=== PATIENT | male | born 1950 | race American Indian/Alaskan Native ===

== ENCOUNTER → 2016-10-08 | Outpatient (CLI) | payer BC ==
[~2016-10-08] MED LIST: AUGMENTIN875 MG PO; Aspirin E.C. PO; Coumadin Daily Dose PO; ENDOCET 5-3251 EACH PO; Flomax PO; Folvite PO; LIPITOR10 MG; LOVENOX60 MG/0.6 SC; Lanoxin,Digitek PO; Lipitor PO; Lopressor PO; METOPROLOL SUCC25 MG PO; PROSCAR5 MG; Proscar PO; Protonix PO; TARCEVA150 MG PO; TYLENOL REGULA325 MG PO; Toprol XL PO; Tylenol Extra Streng PO; Vibramycin, Doryx PO
== END | disposition home or self-care (01) ==
LOC: EKG 12:57
DX: I05.1 Rheumatic mitral insufficiency (principal); I07.1 Rheumatic tricuspid insufficiency; Z98.890 Other specified postprocedural states
CPT/HCPCS: 93306

== ENCOUNTER 2017-10-23 13:50 | Inpatient (IN) | payer OTHER ==
[~2017-10-23] VITALS: Ht 167.6 cm; Wt 63.9 kg
[~2017-10-23 13:50] MED LIST changes: -Aspirin E.C. PO; +LIPITOR20 MG PO; +LO-DOSE ASPIRIN81 M1 PO; +LOVENOX100 MG/1 M SC; -LOVENOX60 MG/0.6 SC; -Lipitor PO; +PROSCAR5 MG PO
[2017-10-23 14:46] LABS: HEMOGLOBIN 12.5 G/DL (12.5-16.6); MCH 28.9 PG (29.0-34.0); MCHC 34.7 G/DL (30.0-36.0); MCV 83.1 FL (86-99); PLATELET COUNT 171 K/uL (156-360); RBC DIS.WIDTH-CV 14.6 % (11.8-14.6); RBC DIS.WIDTH-SD 44.2 % (39-53); RED BLOOD COUNT 4.33 M/uL (4.00-5.50); WHITE BLOOD COUNT 13.1 K/uL (4.1-10.2)
[2017-10-23 14:51] LABS: ALBUMIN 3.3 g/dL (3.2-4.8); CHLORIDE 95 mEq/L (99-109); SODIUM 132 mEq/L (136-147)
[2017-10-23 14:53] LABS: GLUCOSE 149 mg/dL (70-99); TOTAL PROTEIN 5.9 g/dL (6.4-8.3)
[2017-10-23 14:55] LABS: TOTAL BILIRUBIN 0.5 mg/dL (0.0-1.0)
[2017-10-23 14:57] LABS: ALKALINE PHOSPHATASE 93 IU/L (3-129); CREATININE 0.8 mg/dL (0.6-1.3); GFR ESTIMATE (CALCULATED) > 59 mL/min/ (58.99-99999)
[2017-10-23 14:58] LABS: UREA NITROGEN (BUN) 23 mg/dL (9-23)
[2017-10-23 14:59] LABS: AST (GOT) 52 IU/L (2-34)
[2017-10-23 15:00] LABS: ALT (GPT) 70 IU/L (3-49)
[2017-10-23] MEDS ORDERED: [UNRECOGNIZED DRUG - OTHER] PO (15:29)
[2017-10-23] MEDS ORDERED: VITAMIN D34000 UNIT PO (15:29)
[2017-10-23] MEDS ORDERED: DEXAMETHASONE2 MG PO (15:30)
[2017-10-23] MEDS ORDERED: METFORMIN HCL500 MG PO (15:31)
[2017-10-23] MEDS ORDERED: NOVOLOG100 UNIT/1 SC (15:33)
[2017-10-23] MEDS ORDERED: AUGMENTIN875 MG PO (15:33)
[2017-10-23] MEDS ORDERED: LEVAQUIN750 MG PO (15:33)
[2017-10-23 19:00] VITALS: BP 92/54
[2017-10-23 19:29] VITALS: BP 93/50
[2017-10-24 03:44] VITALS: BP 94/52
[2017-10-24 06:36] LABS: BASOPHIL (%) 0.2 % (0-1); EOSINOPHIL (%) 0 % (0-5); HEMATOCRIT 35.2 % (38.0-50.0); HEMOGLOBIN 11.5 G/DL (12.5-16.6); IMMATURE GRANULOCYTE (%) 0.8 % (0.0-0.7); LYMPHOCYTE (%) 15.9 % (15-42); LYMPHOCYTE COUNT 1.8 K/uL (1.0-2.8); MCH 27.8 PG (29.0-34.0); MCHC 32.7 G/DL (30.0-36.0); MONOCYTE (%) 1.3 % (3-12); MONOCYTE COUNT 0.2 K/uL (0-0.8); NEUTROPHIL (%) 81.8 % (45-76); NEUTROPHIL COUNT 9.4 K/uL (1.8-6.4); PLATELET COUNT 191 K/uL (156-360); RBC DIS.WIDTH-CV 14.9 % (11.8-14.6); RBC DIS.WIDTH-SD 45.5 % (39-53); RED BLOOD COUNT 4.14 M/uL (4.00-5.50); WHITE BLOOD COUNT 11.5 K/uL (4.1-10.2)
[2017-10-24 07:04] LABS: ALBUMIN 2.6 G/DL (3.2-4.8); ALKALINE PHOSPHATASE 73 IU/L (3-129); ALT (GPT) 59 IU/L (3-49); AST (GOT) 48 IU/L (2-34); CHLORIDE 101 MEQ/L (99-109); CREATININE 0.8 MG/DL (0.6-1.3); GFR ESTIMATE (CALCULATED) > 59 mL/min/ (58.99-99999); GLUCOSE 192 mg/dL (70-99); SODIUM 138 MEQ/L (136-147); TOTAL BILIRUBIN 0.5 MG/DL (0.0-1.0); UREA NITROGEN (BUN) 21 mg/dL (9-23)
[2017-10-24 07:29] VITALS: BP 92/54
[2017-10-24 16:22] VITALS: BP 95/53
[2017-10-24 23:30] VITALS: BP 97/54
[2017-10-25] VITALS (22 sets, daily range): BP systolic 73–130; BP diastolic 47–76
[2017-10-25 06:34] LABS: BASOPHIL (%) 0.2 % (0-1); EOSINOPHIL (%) 0 % (0-5); HEMATOCRIT 37.1 % (38.0-50.0); HEMOGLOBIN 12.4 G/DL (12.5-16.6); IMMATURE GRANULOCYTE (%) 1.3 % (0.0-0.7); LYMPHOCYTE (%) 22.7 % (15-42); MCH 28.6 PG (29.0-34.0); MCHC 33.4 G/DL (30.0-36.0); MCV 85.7 FL (86-99); MONOCYTE (%) 0.6 % (3-12); MONOCYTE COUNT 0.1 K/uL (0-0.8); NEUTROPHIL (%) 75.2 % (45-76); NEUTROPHIL COUNT 13.2 K/uL (1.8-6.4); PLATELET COUNT 235 K/uL (156-360); RBC DIS.WIDTH-SD 46.3 % (39-53); RED BLOOD COUNT 4.33 M/uL (4.00-5.50); WHITE BLOOD COUNT 17.6 K/uL (4.1-10.2)
[2017-10-25 07:10] LABS: ALBUMIN 2.8 G/DL (3.2-4.8); ALKALINE PHOSPHATASE 77 IU/L (3-129); ALT (GPT) 83 IU/L (3-49); AST (GOT) 62 IU/L (2-34); CHLORIDE 101 MEQ/L (99-109); CREATININE 0.9 MG/DL (0.6-1.3); GFR ESTIMATE (CALCULATED) > 59 mL/min/ (58.99-99999); POTASSIUM 3.8 MEQ/L (3.7-5.4); SODIUM 138 MEQ/L (136-147); TOTAL BILIRUBIN 0.5 MG/DL (0.0-1.0); TOTAL PROTEIN 5.5 G/DL (6.4-8.3); UREA NITROGEN (BUN) 25 mg/dL (9-23); VANCOMYCIN, TROUGH 12.5 MCG/ML (10-20)
[2017-10-25 07:11] LABS: GLUCOSE 113 mg/dL (70-99)
[2017-10-25 07:25] LABS: COMMENTS - BLOOD GASES A+C+; DEVICE NRBM; FI02 100 %; O2 FLOW 15 L/MIN; SITE LEFT RADIAL
[2017-10-25 07:26] LABS: BASE EXCESS 2.3 mEq/L (-3 to +3); BICARBONATE 2.3 mEq/L (22-26); METHEMOGLOBIN 0.9 % (0-1.5); PCO2 30 mm Hg (35-45); PO2 185 mm Hg (80-100); TOTAL RESP RATE 24 resp/min; pH 7.52 (7.35-7.45)
[2017-10-26] VITALS (21 sets, daily range): BP systolic 84–113; BP diastolic 55–68
[2017-10-26 06:05] LABS: BASOPHIL (%) 0.2 % (0-1); EOSINOPHIL (%) 0 % (0-5); HEMATOCRIT 35.8 % (38.0-50.0); IMMATURE GRANULOCYTE (%) 1.1 % (0.0-0.7); LYMPHOCYTE (%) 13.7 % (15-42); LYMPHOCYTE COUNT 1.7 K/uL (1.0-2.8); MCHC 33.5 G/DL (30.0-36.0); MCV 83.4 FL (86-99); MONOCYTE (%) 0.6 % (3-12); MONOCYTE COUNT 0.1 K/uL (0-0.8); NEUTROPHIL (%) 84.4 % (45-76); NEUTROPHIL COUNT 10.6 K/uL (1.8-6.4); PLATELET COUNT 198 K/uL (156-360); RBC DIS.WIDTH-SD 45.1 % (39-53); RED BLOOD COUNT 4.29 M/uL (4.00-5.50); WHITE BLOOD COUNT 12.6 K/uL (4.1-10.2)
[2017-10-26 06:32] LABS: ALBUMIN 2.6 G/DL (3.2-4.8); ALKALINE PHOSPHATASE 68 IU/L (3-129); ALT (GPT) 64 IU/L (3-49); AST (GOT) 47 IU/L (2-34); CHLORIDE 100 MEQ/L (99-109); CREATININE 0.8 MG/DL (0.6-1.3); GFR ESTIMATE (CALCULATED) > 59 mL/min/ (58.99-99999); POTASSIUM 3.4 MEQ/L (3.7-5.4); SODIUM 139 MEQ/L (136-147); TOTAL BILIRUBIN 0.5 MG/DL (0.0-1.0); TOTAL PROTEIN 5.1 G/DL (6.4-8.3); UREA NITROGEN (BUN) 21 mg/dL (9-23)
[2017-10-26 06:36] LABS: GLUCOSE 178 mg/dL (70-99)
[2017-10-26 08:22] LABS: LACTATE DEHYDROGENASE 449 IU/L (20-246)
[2017-10-26 14:35] LABS: INTER. NORMALIZED RATIO 1.3
[2017-10-26 14:38] LABS: PTT 33.3 SEC (25-37)
[2017-10-27] VITALS (10 sets, daily range): BP systolic 101–123; BP diastolic 57–75
[2017-10-28] VITALS (23 sets, daily range): BP systolic 82–116; BP diastolic 54–69
[2017-10-28 06:53] LABS: COMMENTS - BLOOD GASES A+C+; DEVICE MASK VENT; FI02 50 %; MODE SPONT; PEEP 8 CM/H20; PRES. SUPPORT 12 CM/H2O; SITE RIGHT RAD; TOTAL RESP RATE 35 resp/min
[2017-10-28 06:54] LABS: BASE EXCESS 6.2 mEq/L (-3 to +3); BICARBONATE 29.5 mEq/L (22-26); CARBOXY HGB 1.2 % (0-5); METHEMOGLOBIN 1.1 % (0-1.5); PCO2 37 mm Hg (35-45); PO2 76 mm Hg (80-100); pH 7.51 (7.35-7.45)
[2017-10-28 07:44] LABS: BASOPHIL (%) 0.1 % (0-1); EOSINOPHIL (%) 0 % (0-5); HEMATOCRIT 34.8 % (38.0-50.0); HEMOGLOBIN 11.5 G/DL (12.5-16.6); IMMATURE GRANULOCYTE (%) 1.4 % (0.0-0.7); MCH 27.5 PG (29.0-34.0); MCV 83.3 FL (86-99); MONOCYTE (%) 0.8 % (3-12); MONOCYTE COUNT 0.1 K/uL (0-0.8); NEUTROPHIL (%) 89.7 % (45-76); NEUTROPHIL COUNT 10.6 K/uL (1.8-6.4); PLATELET COUNT 252 K/uL (156-360); RBC DIS.WIDTH-CV 15.2 % (11.8-14.6); RED BLOOD COUNT 4.18 M/uL (4.00-5.50); WHITE BLOOD COUNT 11.8 K/uL (4.1-10.2)
[2017-10-28 08:06] LABS: CHLORIDE 95 MEQ/L (99-109); CREATININE 0.7 MG/DL (0.6-1.3); GFR ESTIMATE (CALCULATED) > 59 mL/min/ (58.99-99999); GLUCOSE 209 mg/dL (70-99); POTASSIUM 3.7 MEQ/L (3.7-5.4); SODIUM 138 MEQ/L (136-147); UREA NITROGEN (BUN) 18 mg/dL (9-23)
[2017-10-29] VITALS (19 sets, daily range): BP systolic 85–115; BP diastolic 55–74
[2017-10-30] VITALS (20 sets, daily range): BP systolic 91–120; BP diastolic 58–75
[2017-10-30 08:46] LABS: COMMENTS - BLOOD GASES A+C+; SITE LR
[2017-10-30 08:47] LABS: CARBOXY HGB 1.3 % (0-5); DEVICE HHFNC; FI02 50 %; O2 FLOW 50 L/MIN; O2 SATURATION (CALCULATED) 97 % (95-99); PCO2 37 mm Hg (35-45); PO2 74 mm Hg (80-100); TOTAL RESP RATE 28 resp/min; pH 7.49 (7.35-7.45)
[2017-10-30 08:48] LABS: BASE EXCESS 4.7 mEq/L (-3 to +3); BICARBONATE 28.2 mEq/L (22-26)
[2017-10-30 09:03] LABS: BASOPHIL (%) 0.2 % (0-1); EOSINOPHIL (%) 0 % (0-5); HEMATOCRIT 30.7 % (38.0-50.0); HEMOGLOBIN 10.3 G/DL (12.5-16.6); IMMATURE GRANULOCYTE (%) 1.7 % (0.0-0.7); LYMPHOCYTE (%) 5.3 % (15-42); LYMPHOCYTE COUNT 0.9 K/uL (1.0-2.8); MCH 28.1 PG (29.0-34.0); MCHC 33.6 G/DL (30.0-36.0); MCV 83.9 FL (86-99); MONOCYTE COUNT 0.3 K/uL (0-0.8); NEUTROPHIL (%) 90.8 % (45-76); NEUTROPHIL COUNT 14.6 K/uL (1.8-6.4); NRBC (%) 0.2 /100 WBC (0-0); PLATELET COUNT 318 K/uL (156-360); RBC DIS.WIDTH-CV 15.9 % (11.8-14.6); RBC DIS.WIDTH-SD 47.5 % (39-53); RED BLOOD COUNT 3.66 M/uL (4.00-5.50); WHITE BLOOD COUNT 16.1 K/uL (4.1-10.2)
[2017-10-30 09:25] LABS: ALBUMIN 2.4 G/DL (3.2-4.8); ALKALINE PHOSPHATASE 72 IU/L (3-129); ALT (GPT) 49 IU/L (3-49); AST (GOT) 40 IU/L (2-34); CHLORIDE 97 MEQ/L (99-109); CREATININE 0.7 MG/DL (0.6-1.3); GFR ESTIMATE (CALCULATED) > 59 mL/min/ (58.99-99999); GLUCOSE 191 mg/dL (70-99); POTASSIUM 4.4 MEQ/L (3.7-5.4); SODIUM 135 MEQ/L (136-147); TOTAL PROTEIN 4.4 G/DL (6.4-8.3); UREA NITROGEN (BUN) 26 mg/dL (9-23)
[2017-10-30 09:26] LABS: TOTAL BILIRUBIN 0.2 MG/DL (0.0-1.0)
[2017-10-31] VITALS (22 sets, daily range): BP systolic 93–126; BP diastolic 58–83
[2017-10-31 05:15] LABS: HEMATOCRIT 32.2 % (38.0-50.0); HEMOGLOBIN 10.6 G/DL (12.5-16.6); MCHC 32.9 G/DL (30.0-36.0); MCV 85.2 FL (86-99); NRBC (%) 1.1 /100 WBC (0-0); PLATELET COUNT 322 K/uL (156-360); RBC DIS.WIDTH-SD 49.1 % (39-53); RED BLOOD COUNT 3.78 M/uL (4.00-5.50); WHITE BLOOD COUNT 15.8 K/uL (4.1-10.2)
[2017-10-31 05:50] LABS: ABS NEUTROPHIL COUNT 14.8; ANISOCYTOSIS 1+; BAND NEUTROPHILS 0.9 % (0-8.0); BURR CELLS 2+; EOSINOPHIL ABS CT 0; GIANT PLATELETS 1+; LYMPHOCYTES 4.4 % (15.0-45.0); MONOCYTES 1.7 % (0-9.0); NUCLEATED RBC'S 1.7; OVALOCYTES 1+; PLATELET CLUMPS PRESENT - PLATELET COUNT APPEARS ADQ.; POIKILOCYTOSIS 3+; POLYCHROMASIA 1+; TOX.VACUOLIZATION 2+; TOXIC GRANULATION 1+
[2017-10-31 05:53] LABS: CHLORIDE 103 MEQ/L (99-109); CREATININE 0.8 MG/DL (0.6-1.3); GFR ESTIMATE (CALCULATED) > 59 mL/min/ (58.99-99999); GLUCOSE 145 mg/dL (70-99); SODIUM 135 MEQ/L (136-147); UREA NITROGEN (BUN) 26 mg/dL (9-23)
[2017-10-31 07:31] LABS: MAGNESIUM 2.2 mg/dl (1.3-2.7); PHOSPHORUS 3.2 mg/dL (2.5-4.9)
[2017-11-01] VITALS (22 sets, daily range): BP systolic 103–116; BP diastolic 63–74
[2017-11-01 06:15] LABS: HEMATOCRIT 34.2 % (38.0-50.0); HEMOGLOBIN 11.3 G/DL (12.5-16.6); MCV 84.7 FL (86-99); NRBC (%) 1.3 /100 WBC (0-0); PLATELET COUNT 368 K/uL (156-360); RBC DIS.WIDTH-CV 16.2 % (11.8-14.6); RBC DIS.WIDTH-SD 49.3 % (39-53); RED BLOOD COUNT 4.04 M/uL (4.00-5.50); WHITE BLOOD COUNT 16.9 K/uL (4.1-10.2)
[2017-11-01 06:40] LABS: CHLORIDE 104 MEQ/L (99-109); GFR ESTIMATE (CALCULATED) > 59 mL/min/ (58.99-99999); GLUCOSE 213 mg/dL (70-99); POTASSIUM 4.1 MEQ/L (3.7-5.4); SODIUM 132 MEQ/L (136-147); UREA NITROGEN (BUN) 28 mg/dL (9-23)
[2017-11-01 06:51] LABS: ABS NEUTROPHIL COUNT 16.1; ANISOCYTOSIS 1+; BAND NEUTROPHILS 1.9 % (0-8.0); BURR CELLS 3+; EOSINOPHIL ABS CT 0; LYMPHOCYTES 1.8 % (15.0-45.0); METAMYELOCYTES 1.9 %; MONOCYTES 0.9 % (0-9.0); NUCLEATED RBC'S 1.9; OVALOCYTES 1+; PLAT.SUFFICIENCY ADEQUATE; POIKILOCYTOSIS 3+; SEG.NEUTROPHILS 93.5 % (46.0-76.0)
[2017-11-02] VITALS (16 sets, daily range): BP systolic 97–117; BP diastolic 55–80
[2017-11-03 06:11] LABS: HEMATOCRIT 35.1 % (38.0-50.0); HEMOGLOBIN 11.7 G/DL (12.5-16.6); MCH 27.7 PG (29.0-34.0); MCHC 33.3 G/DL (30.0-36.0); NRBC (%) 0.7 /100 WBC (0-0); PLATELET COUNT 374 K/uL (156-360); RBC DIS.WIDTH-CV 16.3 % (11.8-14.6); RBC DIS.WIDTH-SD 48.3 % (39-53); RED BLOOD COUNT 4.23 M/uL (4.00-5.50); WHITE BLOOD COUNT 17.9 K/uL (4.1-10.2)
[2017-11-03 06:36] LABS: ALBUMIN 2.8 G/DL (3.2-4.8); ALKALINE PHOSPHATASE 88 IU/L (3-129); ALT (GPT) 41 IU/L (3-49); AST (GOT) 25 IU/L (2-34); CHLORIDE 103 MEQ/L (99-109); GFR ESTIMATE (CALCULATED) > 59 mL/min/ (58.99-99999); GLUCOSE 160 mg/dL (70-99); LACTATE DEHYDROGENASE 450 IU/L (20-246); POTASSIUM 4.6 MEQ/L (3.7-5.4); SODIUM 131 MEQ/L (136-147); TOTAL BILIRUBIN 0.2 MG/DL (0.0-1.0); TOTAL PROTEIN 4.9 G/DL (6.4-8.3); UREA NITROGEN (BUN) 30 mg/dL (9-23)
[2017-11-03 06:55] VITALS: BP 98/57
[2017-11-03 07:19] LABS: ABS NEUTROPHIL COUNT 15.9; ANISOCYTOSIS 1+; ATYPICAL LYMPHOCYTE 0.9 %; BAND NEUTROPHILS 2.8 % (0-8.0); BURR CELLS 1+; EOSINOPHIL ABS CT 0; LYMPHOCYTES 7.6 % (15.0-45.0); METAMYELOCYTES 0.9 %; MICROCYTOSIS 1+; MYELOCYTES 1.9 %; NUCLEATED RBC'S 0.9; OVALOCYTES 2+; PLAT.SUFFICIENCY ADEQUATE; POIKILOCYTOSIS 2+; POLYCHROMASIA 1+; SEG.NEUTROPHILS 85.9 % (46.0-76.0); SPHEROCYTES 1+
[2017-11-03 15:20] VITALS: BP 102/62
[2017-11-03 20:33] LABS: APPEARANCE CLEAR ((CLEAR)); BILIRUBIN NEGATIVE; BLOOD NEGATIVE; COLOR STRAW ((YELLOW)); GLUCOSE (STRIP) >=500; KETONES NEGATIVE; LEUKOCYTES NEGATIVE; NITRITE NEGATIVE; PROTEIN (STRIP) NEGATIVE; SPECIFIC GRAVITY 1.011 (1.000-1.030); UROBILINOGEN 0.2 MG/DL (0.2-1.0)
[2017-11-03 22:54] VITALS: BP 113/58
[2017-11-03 23:05] LABS: EOSINOPHILS,URINE NONE SEEN
[2017-11-04 01:14] LABS: Specimen Type Urine (())
[2017-11-04 06:23] LABS: HEMATOCRIT 38.9 % (38.0-50.0); HEMOGLOBIN 12.9 G/DL (12.5-16.6); MCH 27.4 PG (29.0-34.0); MCHC 33.2 G/DL (30.0-36.0); MCV 82.8 FL (86-99); NRBC (%) 0.5 /100 WBC (0-0); PLATELET COUNT 381 K/uL (156-360); RBC DIS.WIDTH-CV 16.4 % (11.8-14.6); RBC DIS.WIDTH-SD 47.9 % (39-53); WHITE BLOOD COUNT 17.5 K/uL (4.1-10.2)
[2017-11-04 06:38] LABS: ALBUMIN 2.9 G/DL (3.2-4.8); ALKALINE PHOSPHATASE 94 IU/L (3-129); ALT (GPT) 44 IU/L (3-49); AST (GOT) 27 IU/L (2-34); CHLORIDE 100 MEQ/L (99-109); CREATININE 0.9 MG/DL (0.6-1.3); GFR ESTIMATE (CALCULATED) > 59 mL/min/ (58.99-99999); MAGNESIUM 2.2 mg/dl (1.3-2.7); PHOSPHORUS 2.7 mg/dL (2.5-4.9); POTASSIUM 4.9 MEQ/L (3.7-5.4); SODIUM 131 MEQ/L (136-147); TOTAL BILIRUBIN 0.2 MG/DL (0.0-1.0); TOTAL PROTEIN 5.3 G/DL (6.4-8.3); UREA NITROGEN (BUN) 27 mg/dL (9-23); URIC ACID 2.6 mg/dL (3.1-9.2)
[2017-11-04 06:49] LABS: GLUCOSE 115 mg/dL (70-99)
[2017-11-04 07:01] LABS: ABS NEUTROPHIL COUNT 15.8; BAND NEUTROPHILS 1.9 % (0-8.0); BURR CELLS 1+; EOSINOPHIL ABS CT 0; LYMPHOCYTES 4.8 % (15.0-45.0); METAMYELOCYTES 1.9 %; MONOCYTES 1.9 % (0-9.0); MYELOCYTES 0.9 %; NUCLEATED RBC'S 2.9; PLAT.SUFFICIENCY ADEQUATE; POIKILOCYTOSIS 1+; SEG.NEUTROPHILS 88.6 % (46.0-76.0); SMUDGE CELLS 30.5
[2017-11-04 07:31] VITALS: BP 104/56
[2017-11-04 11:25] VITALS: BP 154/72
[2017-11-04 16:36] VITALS: BP 101/63
[2017-11-04 19:46] VITALS: BP 116/67
[2017-11-05] VITALS (7 sets, daily range): BP systolic 94–104; BP diastolic 57–69
[2017-11-05 06:06] LABS: HEMOGLOBIN 13.6 G/DL (12.5-16.6); MCH 28.6 PG (29.0-34.0); MCHC 34.9 G/DL (30.0-36.0); MCV 81.9 FL (86-99); NRBC (%) 0.9 /100 WBC (0-0); PLATELET COUNT 330 K/uL (156-360); RBC DIS.WIDTH-CV 16.8 % (11.8-14.6); RBC DIS.WIDTH-SD 48.2 % (39-53); RED BLOOD COUNT 4.76 M/uL (4.00-5.50); WHITE BLOOD COUNT 16.9 K/uL (4.1-10.2)
[2017-11-05 06:24] LABS: CHLORIDE 98 MEQ/L (99-109); CREATININE 0.9 MG/DL (0.6-1.3); GFR ESTIMATE (CALCULATED) > 59 mL/min/ (58.99-99999); GLUCOSE 118 mg/dL (70-99); POTASSIUM 4.8 MEQ/L (3.7-5.4); SODIUM 131 MEQ/L (136-147); UREA NITROGEN (BUN) 30 mg/dL (9-23)
[2017-11-05 06:31] LABS: BAND NEUTROPHILS 3.7 % (0-8.0); BURR CELLS 1+; EOSINOPHIL ABS CT 0; LYMPHOCYTES 0.9 % (15.0-45.0); MONOCYTES 0.9 % (0-9.0); MYELOCYTES 3.6 %; NUCLEATED RBC'S 0.9; OVALOCYTES 1+; PLAT.SUFFICIENCY ADEQUATE; POIKILOCYTOSIS 2+; SEG.NEUTROPHILS 90.9 % (46.0-76.0); SMUDGE CELLS 1.8
[2017-11-06 02:40] VITALS: BP 95/64
[2017-11-06 07:05] VITALS: BP 98/59
[2017-11-06 07:09] LABS: HEMATOCRIT 42.6 % (38.0-50.0); HEMOGLOBIN 14.3 G/DL (12.5-16.6); MCH 27.7 PG (29.0-34.0); MCHC 33.6 G/DL (30.0-36.0); MCV 82.4 FL (86-99); NRBC (%) 0.8 /100 WBC (0-0); PLATELET COUNT 365 K/uL (156-360); RBC DIS.WIDTH-CV 17.2 % (11.8-14.6); RED BLOOD COUNT 5.17 M/uL (4.00-5.50); WHITE BLOOD COUNT 16.5 K/uL (4.1-10.2)
[2017-11-06 07:25] LABS: CHLORIDE 94 MEQ/L (99-109); CREATININE 0.9 MG/DL (0.6-1.3); GFR ESTIMATE (CALCULATED) > 59 mL/min/ (58.99-99999); MAGNESIUM 2.2 mg/dl (1.3-2.7); PHOSPHORUS 3.1 mg/dL (2.5-4.9); POTASSIUM 5.4 MEQ/L (3.7-5.4); SODIUM 130 MEQ/L (136-147); UREA NITROGEN (BUN) 31 mg/dL (9-23)
[2017-11-06 07:27] LABS: ANISOCYTOSIS 1+; ATYPICAL LYMPHOCYTE 6.2 %; BAND NEUTROPHILS 1.8 % (0-8.0); BURR CELLS 1+; EOSINOPHIL ABS CT 0; GLUCOSE 80 mg/dL (70-99); LYMPHOCYTES 4.4 % (15.0-45.0); METAMYELOCYTES 4.4 %; MONOCYTES 4.4 % (0-9.0); MYELOCYTES 1.8 %; NUCLEATED RBC'S 1.8; OVALOCYTES 1+; PLAT.SUFFICIENCY ADEQUATE; POIKILOCYTOSIS 2+; POLYCHROMASIA 1+
[2017-11-06 10:55] VITALS: BP 111/62
[2017-11-06 16:00] VITALS: BP 97/57
[2017-11-06 19:21] VITALS: BP 119/72
[2017-11-06 23:22] VITALS: BP 109/64
[2017-11-07 04:16] VITALS: BP 98/60
[2017-11-07 05:59] LABS: HEMATOCRIT 40.3 % (38.0-50.0); HEMOGLOBIN 13.6 G/DL (12.5-16.6); MCH 27.7 PG (29.0-34.0); MCHC 33.7 G/DL (30.0-36.0); MCV 82.1 FL (86-99); NRBC (%) 0.3 /100 WBC (0-0); PLATELET COUNT 263 K/uL (156-360); RBC DIS.WIDTH-CV 17.2 % (11.8-14.6); RBC DIS.WIDTH-SD 48.9 % (39-53); RED BLOOD COUNT 4.91 M/uL (4.00-5.50); WHITE BLOOD COUNT 17.3 K/uL (4.1-10.2)
[2017-11-07 06:09] LABS: CHLORIDE 96 MEQ/L (99-109); CREATININE 0.7 MG/DL (0.6-1.3); GFR ESTIMATE (CALCULATED) > 59 mL/min/ (58.99-99999); GLUCOSE 88 mg/dL (70-99); SODIUM 129 MEQ/L (136-147); UREA NITROGEN (BUN) 27 mg/dL (9-23)
[2017-11-07 06:50] LABS: ABS NEUTROPHIL COUNT 14.7; ATYPICAL LYMPHOCYTE 1.8 %; BURR CELLS 1+; EOSINOPHIL ABS CT 0; GIANT PLATELETS 1+; LYMPHOCYTES 4.5 % (15.0-45.0); MONOCYTES 7.1 % (0-9.0); MYELOCYTES 1.8 %; NUCLEATED RBC'S 0.9; OVALOCYTES 1+; PLAT.SUFFICIENCY ADEQUATE; POIKILOCYTOSIS 2+; SEG.NEUTROPHILS 84.8 % (46.0-76.0); TOXIC GRANULATION 2+
[2017-11-07 06:55] VITALS: BP 102/65
[2017-11-07 10:55] VITALS: BP 105/58
[2017-11-07 15:25] VITALS: BP 98/55
[2017-11-07] MEDS ORDERED: DUONEB 2.5-0.5 M3 ML AEROSOL (17:58)
[2017-11-07] MEDS ORDERED: PREDNISONE20 MG PO (17:58)
[2017-11-07] MEDS ORDERED: BACTRIM,SEPT1 TABLET PO (17:58)
[2017-11-07] MEDS ORDERED: PANTOPRAZOLE SO40 MG PO (17:58)
== END 2017-11-07 19:20 | disposition home or self-care (01) | DRG 166 ==
LOC: EME 13:50 → 4WEST 14:58 → EDOF 14:58 → 5EAST 14:58 → ENRESERV 15:13 → 5EAST 16:41 → ENRESERV 10-25 08:13 → 4WEST 10-25 09:33 → ENRESERV 10-26 13:56 → 5EAST 10-26 18:00 → ENRESERV 10-27 18:08 → 4WEST 10-27 18:35 → ENRESERV 11-02 17:12 → 5EAST 11-02 18:37
PROVIDERS: Anesthesiology; Emergency Medicine; Family Medicine; Internal Medicine Critical Care Medicine; Internal Medicine Hematology & Oncology; Internal Medicine Infectious Disease; Internal Medicine Nephrology; Nurse Practitioner Adult Health; Specialist; Surgery
PROC: 0B9F8ZX Drainage of Right Lower Lung Lobe, Via Natural or Artificial Opening Endoscopic, Diagnostic (ICD-10-PCS; principal; 2017-10-25)
PROC: 5A0935Z Assistance with Respiratory Ventilation, Less than 24 Consecutive Hours (ICD-10-PCS; 2017-10-28)
DX: B59 Pneumocystosis (principal); J96.01 Acute respiratory failure with hypoxia; C34.32 Malignant neoplasm of lower lobe, left bronchus or lung; C79.31 Secondary malignant neoplasm of brain; N40.0 Benign prostatic hyperplasia without lower urinary tract symptoms; E78.5 Hyperlipidemia, unspecified; R04.0 Epistaxis; R00.0 Tachycardia, unspecified; C78.2 Secondary malignant neoplasm of pleura; G93.6 Cerebral edema; J84.89 Other specified interstitial pulmonary diseases; E87.70 Fluid overload, unspecified; E11.9 Type 2 diabetes mellitus without complications; E87.3 Alkalosis; Y95 Nosocomial condition; J86.9 Pyothorax without fistula; I25.10 Atherosclerotic heart disease of native coronary artery without angina pectoris; E87.4 Mixed disorder of acid-base balance; E87.1 Hypo-osmolality and hyponatremia; Z79.82 Long term (current) use of aspirin; Z92.3 Personal history of irradiation; Z91.040 Latex allergy status; Z92.21 Personal history of antineoplastic chemotherapy; Z86.711 Personal history of pulmonary embolism; Z79.899 Other long term (current) drug therapy; Z91.09 Other allergy status, other than to drugs and biological substances; Z86.73 Personal history of transient ischemic attack (TIA), and cerebral infarction without residual deficits; Z79.01 Long term (current) use of anticoagulants
CPT/HCPCS: 36415; 36600; 71045; 71046; 71250; 80048; 80053; 80202; 81003; 82010; 82150; 82803; 82948; 83605; 83615; 83690; 83735; 83880; 83935; 84100; 84145 90; 84300; 84550; 85025; 85027; 85610; 85730; 87040; 87070; 87081; 87102; 87116; 87205; 87206; 87278; 87385 90; 87449; 87449 90; 87641; 87798 90; 87899; 88108; 88312; 89190; 94002; 94003; 94640; 94640 76; 94760; 94799; 97530 GO; 97530 GP; 99202; 99281; 99285; C1753; J0456; J1650; J1815; J1940; J2250; J2543; J2920; J2930; J3010; J3370; J3465; J7030; J7050; J7060; J7120; J7512; P9045; S0039